=== PATIENT | male | born 1985 | race Two or more races ===

== ENCOUNTER 2019-01-17 13:08 | Emergency (ER) | payer SELFPAY ==
[~2019-01-17] VITALS: Ht 170.2 cm; Wt 74.8 kg
--- NOTE | 2019-01-17 13:10 | NUR ---
BROUGHT IN by ambulance from the street per lapd and rescue patient wants to kill luis a [place] PLACED HIM ON 5150 ON ARRIVAL HE IS AWAKE ALERT ORIENTED.patient denies any suicidal at this time
--- NOTE | 2019-01-17 13:15 | NUR ---
sitter order obtained sitter at [facility] . meds given and iv started by carroll henry
[2019-01-17] MEDS ORDERED: TRAZODONE HCL150 MG ORAL (13:27)
[2019-01-17] MEDS ORDERED: SERTRALINE HCL25 MG ORAL (13:27)
[2019-01-17 13:30] VITALS: BP 128/64
--- NOTE | 2019-01-17 13:30 | NUR ---
continue monitoring sitter at bedside
--- NOTE | 2019-01-17 13:40 | Emergency Room Report ---
History of Present Illness General Chief Complaint: Behavioral Complaint Source: EMS (Melanie Velasquez) Present Illness HPI 33-year-old male presents to the emergency department on 5150 hold for suicidal ideations. Patient is endorsing wanting to commit suicide he states he does not have a plan at this time he denies previous suicide attempts he does report previous psychiatric hospitalizations and states that he was recently hospitalized at [facility]. Patient states he is on a psychiatric medication for which she is not know the name of at this time he states he is being treated for anxiety. Patient reports alcohol use he denies illicit drug use. He denies history of heart or liver conditions denies history of seizures. Denies hallucinations, delusions or manic episodes. Denies pain, chest pain, shortness of breath or abdominal pain/tenderness. (Melanie Velasquez) Allergies: Coded Allergies: No Known Allergies (Unverified , 01/17/19) Patient History Past Medical History: see triage record Past Surgical History: none Pertinent Family History: none Social History: Reports: alcohol use Reviewed Nursing Documentation: PMH: Agreed; PSxH: Agreed (Melanie Velasquez) Nursing Documentation-PMH Past Medical History: No History, Except For History Of Psychiatric Problem: Yes - depression anxiety (Melanie Velasquez) Review of Systems All Other Systems: negative except mentioned in HPI (Melanie Velasquez) Physical Exam Vital Signs Date Time Temp Pulse Resp B/P (MAP) Pulse Ox O2 Delivery O2 Flow Rate FiO2 01/17/19 13:01 98.2 98 18 128/64 (85) 100 Sp02 EP Interpretation: reviewed, normal General Appearance: no apparent distress, alert, GCS 15, non-toxic Head: normocephalic, atraumatic Eyes: bilateral eye normal inspection, bilateral eye PERRL ENT: hearing grossly normal, normal voice Neck: full range of motion Respiratory: chest non-tender, lungs clear, normal breath sounds, speaking full sentences Cardiovascular #1: regular rate, rhythm Gastrointestinal: normal bowel sounds, non tender, soft Musculoskeletal: back normal, gait/station normal, normal range of motion, non- tender, other - bruises to the legs bilaterally Neurologic: alert, oriented x3, responsive, motor strength/tone normal, sensory intact, speech normal, grossly normal Psychiatric: judgement/insight normal Skin: normal color, no rash, warm/dry, well hydrated (Melanie Velasquez) Medical Decision Making PA Attestation Dr. Zamora Is my supervising Physician whom patient management has been discussed with. (Melanie Velasquez) Diagnostic Impression: Primary Impression: Behavioral change Additional Impressions: Alcohol intoxication Qualified Codes: F10.920 - Alcohol use, unspecified with intoxication, uncomplicated Rhabdomyolysis Qualified Codes: M62.82 - Rhabdomyolysis Depression Anxiety ER Course 33-year-old male presents to the emergency department on 5150 hold for suicidal ideations. Patient is endorsing wanting to commit suicide he states he does not have a plan at this time he denies previous suicide attempts he does report previous psychiatric hospitalizations and states that he was recently hospitalized at [facility]. Patient states he is on a psychiatric medication for which she is not know the name of at this time he states he is being treated for anxiety. Patient reports alcohol use he denies illicit drug use. He denies history of heart or liver conditions denies history of seizures. Denies hallucinations, delusions or manic episodes. Denies pain, chest pain, shortness of breath or abdominal pain/tenderness. Pt is hyperactive, and has a very restless affect. Ddx considered but are not limited to OD, SI/HI, psychosis, UTI, intoxication Vital signs: are WNL, pt. is afebrile H&PE are most consistent with behavioral/mental health issue ORDERS: -CBC, CMP: electrolyte imbalance- hypokalemia, hyponatremia. -CK: elevated at 1646 - Serum ETOH: 426 -UA: negative for infection see results attached. -UDS: negative -Salicylates and Acetaminophen - no acute intoxication. ED INTERVENTIONS: -1mg Ativan IV - 2 liters NS -Zofran IV -Pepcid - K-Stefano 40Meq. DISPOSITION: Awaiting repeat labs before pt. can be medically cleared. Pt. on [address] out [address] driscoll- on-coming ED physician Labs Test 01/17/19 13:27 White Blood Count 7.9 K/UL (4.8-10.8) Red Blood Count 4.61 M/UL (4.70-6.10) Hemoglobin 14.3 G/DL (14.2-18.0) Hematocrit 39.7 % (42.0-52.0) Mean Corpuscular Volume 86 FL (80-99) Mean Corpuscular Hemoglobin 31.1 PG (27.0-31.0) Mean Corpuscular Hemoglobin Concent 36.1 G/DL (32.0-36.0) Red Cell Distribution Width 11.6 % (11.6-14.8) Platelet Count 247 K/UL (150-450) Mean Platelet Volume 5.1 FL (6.5-10.1) Neutrophils (%) (Auto) 76.3 % (45.0-75.0) Lymphocytes (%) (Auto) 12.2 % (20.0-45.0) Monocytes (%) (Auto) 9.5 % (1.0-10.0) Eosinophils (%) (Auto) 0.2 % (0.0-3.0) Basophils (%) (Auto) 1.9 % (0.0-2.0) Sodium Level 133 MMOL/L (136-145) Potassium Level 3.4 MMOL/L (3.5-5.1) Chloride Level 95 MMOL/L (98-107) Carbon Dioxide Level 25 MMOL/L (21-32) Anion Gap 13 mmol/L (5-15) Blood Urea Nitrogen 4 mg/dL (7-18) Creatinine 0.8 MG/DL (0.55-1.30) Estimat Glomerular Filtration Rate > 60 mL/min (>60) Glucose Level 133 MG/DL (74-106) Calcium Level 8.3 MG/DL (8.5-10.1) Total Bilirubin 1.0 MG/DL (0.2-1.0) Aspartate Amino Transf (AST/SGOT) 69 U/L (15-37) Alanine Aminotransferase (ALT/SGPT) 32 U/L (12-78) Alkaline Phosphatase 122 U/L (46-116) Total Creatine Kinase 1626 U/L (26-308) Total Protein 7.6 G/DL (6.4-8.2) Albumin 3.9 G/DL (3.4-5.0) Globulin 3.7 g/dL Albumin/Globulin Ratio 1.1 (1.0-2.7) Salicylates Level < 0.2 ug/mL (2.8-20) Urine Opiates Screen Negative (NEGATIVE) Acetaminophen Level < 2 MCG/ML (10-30) Urine Barbiturates Screen Negative (NEGATIVE) Phencyclidine (PCP) Screen Negative (NEGATIVE) Urine Amphetamines Screen Negative (NEGATIVE) Urine Benzodiazepines Screen Negative (NEGATIVE) Urine Cocaine Screen Negative (NEGATIVE) Urine Marijuana (THC) Screen Negative (NEGATIVE) Serum Alcohol 421 mg/dL (Melanie Velasquez) ER Course Patient was seen by Dr. Driscoll. Patient was signed out to me for final disposition. I have also evaluated patient. Patient apparently was intoxicated last night and complained to the police that he wanted to hurt himself. Patient now is clinically sober and has rescinded his complaints. He is not suicidal or homicidal. He is a little anxious and has a history of alcoholism. He is requesting to be discharged. However because he is on a 5150 hold psychiatric he was consulted. Dr. Macdonald saw the patient. [place] that patient was medically and psychiatrically cleared. Patient's 5150 was lifted. Patient's laboratory work-up was appropriate except for elevated CK. This was repeated throughout the night and appeared to be improving. Patient also receive a total of 5 L fluid bolus since he has been here and appears to be doing well. He is able to eat. Patient will receive social work evaluation prior to discharge. Will recommend providing counseling as well as outpatient follow-up with addiction centers or shelters. Advised to follow-up with primary care physician or free clinic return to ER for any worsening symptoms and as needed. Advised return emergency room if he feels suicidal or has any suicidal thoughts. Labs Test 01/17/19 13:27 01/17/19 20:36 01/18/19 07:10 White Blood Count 7.9 K/UL (4.8-10.8) Red Blood Count 4.61 M/UL (4.70-6.10) Hemoglobin 14.3 G/DL (14.2-18.0) Hematocrit 39.7 % (42.0-52.0) Mean Corpuscular Volume 86 FL (80-99) Mean Corpuscular Hemoglobin 31.1 PG (27.0-31.0) Mean Corpuscular Hemoglobin Concent 36.1 G/DL (32.0-36.0) Red Cell Distribution Width 11.6 % (11.6-14.8) Platelet Count 247 K/UL (150-450) Mean Platelet Volume 5.1 FL (6.5-10.1) Neutrophils (%) (Auto) 76.3 % (45.0-75.0) Lymphocytes (%) (Auto) 12.2 % (20.0-45.0) Monocytes (%) (Auto) 9.5 % (1.0-10.0) Eosinophils (%) (Auto) 0.2 % (0.0-3.0) Basophils (%) (Auto) 1.9 % (0.0-2.0) Sodium Level 133 MMOL/L (136-145) Potassium Level 3.4 MMOL/L (3.5-5.1) Chloride Level 95 MMOL/L (98-107) Carbon Dioxide Level 25 MMOL/L (21-32) Anion Gap 13 mmol/L (5-15) Blood Urea Nitrogen 4 mg/dL (7-18) Creatinine 0.8 MG/DL (0.55-1.30) Estimat Glomerular Filtration Rate > 60 mL/min (>60) Glucose Level 133 MG/DL (74-106) Calcium Level 8.3 MG/DL (8.5-10.1) Total Bilirubin 1.0 MG/DL (0.2-1.0) Aspartate Amino Transf (AST/SGOT) 69 U/L (15-37) Alanine Aminotransferase (ALT/SGPT) 32 U/L (12-78) Alkaline Phosphatase 122 U/L (46-116) Total Creatine Kinase 1626 U/L (26-308) 1420 U/L (26-308) 1166 U/L (26-308) Total Protein 7.6 G/DL (6.4-8.2) Albumin 3.9 G/DL (3.4-5.0) Globulin 3.7 g/dL Albumin/Globulin Ratio 1.1 (1.0-2.7) Salicylates Level < 0.2 ug/mL (2.8-20) Urine Opiates Screen Negative (NEGATIVE) Acetaminophen Level < 2 MCG/ML (10-30) Urine Barbiturates Screen Negative (NEGATIVE) Phencyclidine (PCP) Screen Negative (NEGATIVE) Urine Amphetamines Screen Negative (NEGATIVE) Urine Benzodiazepines Screen Negative (NEGATIVE) Urine Cocaine Screen Negative (NEGATIVE) Urine Marijuana (THC) Screen Negative (NEGATIVE) Serum Alcohol 421 mg/dL 207 mg/dL (Ervin Novoa MD) Other X-Ray Diagnostic Results Other X-Ray Diagnostic Results : X-Ray ordered: Left Ankle # of Views/Limited Vs Complete: 3 View Indication: Pain EP Interpretation: Yes PA Xray: Interpretation reviewed, by supervising MD, and agrees with findings. Interpretation: no dislocation, no soft tissue swelling, no fractures Impression: No acute disease Electronically Signed by: Melanie Velasquez PA-C (Melanie Velasquez) Last Vital Signs Date Time Temp Pulse Resp B/P (MAP) Pulse Ox O2 Delivery O2 Flow Rate FiO2 01/17/19 13:01 98.2 98 18 128/64 (85) 100 (Melanie Velasquez) Status: improved (Ervin Novoa MD) Disposition: HOME, SELF-CARE Condition: Stable Signed Out To: Dr. Driscoll (Melanie Velasquez) Melanie Velasquez Jan 17, 2019 13:40 Ervin Novoa MD Jan 18, 2019 10:46
--- NOTE | 2019-01-17 13:42 | NUR ---
ED Nurse Note: pt belongings on locker 3
--- NOTE | 2019-01-17 13:45 | NUR ---
sitter at bedside
[2019-01-17] MEDS ORDERED: LORazepam Inj 2mg/ml 1ml IV ONE (14:00)
--- NOTE | 2019-01-17 14:00 | NUR ---
sitter at bedside
[2019-01-17 14:08] LABS: BASOPHILS % (AUTO) 1.9 % (0.0-2.0); EOSINOPHILS % (AUTO) 0.2 % (0.0-3.0); HEMATOCRIT 39.7 % (42.0-52.0); HEMOGLOBIN 14.3 G/DL (14.2-18.0); LYMPHOCYTES % (AUTO) 12.2 % (20.0-45.0); MEAN CORPUSCULAR VOLUME 86 FL (80-99); MONOCYTES % (AUTO) 9.5 % (1.0-10.0); NEUTROPHILS % (AUTO) 76.3 % (45.0-75.0); PLATELET COUNT 247 K/UL (150-450); RED BLOOD COUNT 4.61 M/UL (4.70-6.10); RED CELL DISTRIBUTION WIDTH 11.6 % (11.6-14.8); WHITE BLOOD COUNT 7.9 K/UL (4.8-10.8)
--- NOTE | 2019-01-17 14:15 | NUR ---
sitter at bedside
[2019-01-17 14:25] LABS: ANION GAP 13 mmol/L (5-15); BLOOD UREA NITROGEN 4 mg/dL (7-18); CALCIUM 8.3 MG/DL (8.5-10.1); CARBON DIOXIDE 25 MMOL/L (21-32); CHLORIDE 95 MMOL/L (98-107); CREATININE 0.8 MG/DL (0.55-1.30); POTASSIUM 3.4 MMOL/L (3.5-5.1); SODIUM 133 MMOL/L (136-145)
--- NOTE | 2019-01-17 14:30 | NUR ---
sitter at bedside
[2019-01-17 14:38] LABS: ALANINE AMINOTRANSFERASE 32 U/L (12-78); ALBUMIN 3.9 G/DL (3.4-5.0); ALBUMIN/GLOBULIN RATIO 1.1 (1.0-2.7); ALKALINE PHOSPHATASE 122 U/L (46-116); ASPARTATE AMINO TRANSFERASE 69 U/L (15-37); CREATINE KINASE 1626 U/L (26-308)
--- NOTE | 2019-01-17 15:00 | NUR ---
patient is awake alert oriented sitter at bedside continue monitor
--- NOTE | 2019-01-17 15:30 | NUR ---
sitter at bedside patient is sleeping
--- NOTE | 2019-01-17 16:00 | NUR ---
patient is sleeping iv infusing well. sitter at bedside
--- NOTE | 2019-01-17 16:15 | NUR ---
sitter at bedside
--- NOTE | 2019-01-17 16:42 | NUR ---
ED Nurse Note: pt is nauseadted and asked for a bag and provided, pt vomited, diya stone made aware and order iv zofran and given and pt able to tolerate. will continue to monitor
[2019-01-17 17:30] VITALS: BP 124/60
--- NOTE | 2019-01-17 19:20 | NUR ---
HAND-OFF: Report given to Tamy henry. pt is asleep and calm at the moment.
--- NOTE | 2019-01-17 19:40 | NUR ---
ED Nurse Note: Patient resting comfortably, able to ambulate to restroom no s/s of acute distress and reports no intention to harm himself.
--- NOTE | 2019-01-17 19:50 | NUR ---
ED Nurse Note: Patient accompanied by sitter, see sitter log.
--- NOTE | 2019-01-17 20:40 | NUR ---
ED Nurse Note: patient ambulating frequently to the restroom, no s/s of acute distress and no complaints at this time.
[2019-01-17 21:29] LABS: CREATINE KINASE 1420 U/L (26-308)
--- NOTE | 2019-01-17 21:41 | NUR ---
ED Nurse Note: Patient resting comfortably and able to void.
--- NOTE | 2019-01-17 22:46 | NUR ---
ED Nurse Note: Patient resting comfortably no s/s of acute distress.
--- NOTE | 2019-01-17 23:50 | NUR ---
ED Nurse Note: Patient is resting comfortably.
--- NOTE | 2019-01-18 01:33 | NUR ---
ED Nurse Note: Patient sleeping comfortably no s/s of acute distress.
--- NOTE | 2019-01-18 07:10 | NUR ---
ED Nurse Note: SITTER AT THE BEDSIDE. BREAKFAST TRAY GIVEN
--- NOTE | 2019-01-18 08:00 | NUR ---
ED Nurse Note:blood sent to labs per md order, pt. had breakfast,resting no signs of distress noted ,sitter is at bed side ,updated VS
[2019-01-18 08:19] VITALS: BP 135/85
[2019-01-18 08:21] LABS: CREATINE KINASE 1166 U/L (26-308)
[2019-01-18] MEDS ORDERED: LORazepam Inj 2mg/ml 1ml IV ONE (08:45)
--- NOTE | 2019-01-18 08:49 | NUR ---
ED Nurse Note: SITTER AT THE BEDSIDE. PT. HAS NO S/S OF ACUTE RESPIRATORY DISTRESS NOTED
--- NOTE | 2019-01-18 09:00 | NUR ---
ED Nurse Note:sitter is at bedside
--- NOTE | 2019-01-18 10:15 | NUR ---
ED Nurse Note: DR. NAQVI AT THE BEDSIDE
--- NOTE | 2019-01-18 10:25 | NUR ---
ED Nurse Note:dr. Macodnald came to evaluate pt. ,she removed the 51/50 hold and pt. will be seen by SW first and then discharged
--- NOTE | 2019-01-18 10:29 | NUR ---
ED Nurse Note: DR. NAQVI LIFTED THE HOLD
--- NOTE | 2019-01-18 10:30 | NUR ---
ED Nurse Note: DR. BAJWA CALLED SW BUT DID NOT AIRWAYS OPERATIONS SPECIALIST. DR. BAJWA LEFT A MESSAGE
--- NOTE | 2019-01-18 10:47 | NUR ---
ED Nurse Note: CALLED SW. SPOKE WITH JOVAN LAMAS. SHE WILL COME DOWN AND SEE THE PATIENT
--- NOTE | 2019-01-18 11:30 | Diagnostic Imaging Report ---
Indication: left ankle pain Comparison: None Findings: 3 views of the left ankle obtained. Generalized soft tissue swelling is present within the visualized part of the leg and ankle. No acute fracture, malalignment, periostitis, or osteochondral defects are identified. Impression: No acute findings. Soft tissue swelling
--- NOTE | 2019-01-18 11:37 | NUR ---
ED Nurse Note: Sports Cartoonist Barb confirmed that pt can go back to his facility @ [address]
[2019-01-18 11:38] VITALS: BP 129/74
[2019-01-18 12:01] VITALS: BP 129/74
--- NOTE | 2019-01-18 12:11 | NUR ---
ER DISCHARGE NOTE: Patient is cleared to be discharged per ERMD, pt is aox4, on room air, with stable vital signs. pt was given dc and prescription instructions, pt was able to verbalize understanding, pt is able to ambulate with steady gait. pt took all belongings.pt was provided with taxi voucher back to his place
--- NOTE | 2019-01-18 14:09 | NUR ---
Social Service Note JOVAN met with patient and addressed community resources. Patient states he is residing at [facility] a transitional housing program at [address]. Patient states he would like to return to this location upon discharge. Patient cleared by psychiatrist Dr. Macdonald. Patient states he doesn't feel he is dependent of alcohol however is aware when he drinks excessively he feels depressed. Patient is worried that he may lose his housing because of this actions. Patient is receptive to resources. Currently patient's insurance has lapse and he is non-funded. JOVAN spoke with director of admitting who will have a ambulatory service representative screen patient for [facility]. JOVAN discussed mental health follow up and the information on [facility] substance abuse hotline. JOVAN contacted [facility] [phone] and spoke with Stephanie. Stephanie confirmed patient is able to return to program. JOVAN informed primary nurse. Patient can return via taxi.
--- NOTE | 2019-01-19 04:30 | Consultation ---
DATE OF CONSULTATION: 01/18/2019 CONSULTING PHYSICIAN: Kenroy Macdonald M.D. REFERRING PHYSICIAN: Ervin Novoa M.D. HISTORY OF PRESENT ILLNESS: The patient is a 33-year-old male with a history of alcohol dependence since age 17, who is admitted to the hospital due to suicidal ideation. The patient was placed on a 5150 for danger to self. At that time, the patient was intoxicated when they brought into the emergency room. He arrives here yesterday afternoon. During the evaluation today, he was anxious and withdrawing from alcohol. When he was , he was given 1 mg of Ativan . The patient stated that he is feeling suicidal when intoxicated, however, he is not feeling suicidal. He was motivated to stop drinking. I evaluated the patient with his nurse in the room. The patient denied any suicidal or homicidal ideation. He stated that he feels more anxiety and he has alcohol dependence. The patient also has been depressive, having low energy. The patient is unemployed and he is on disability. He does not endorse any psychotic or manic symptoms. PAST PSYCHIATRIC HISTORY: He has a history of psychiatric disorder in the past . About a few weeks ago, he was with similar situation. He took himself to [facility]. PAST MEDICAL HISTORY: He has kidney and liver abnormalities. ALLERGIES: No known drug allergies. SUBSTANCE ABUSE HISTORY: Significant for marijuana and alcohol. MENTAL STATUS EXAMINATION: The patient is alert and oriented x4. Pleasant and cooperative. Mood is anxious and irritable. Affect is constricted with congruent mood. Thought process, linear and goal-oriented. Thought content, no suicidal or homicidal ideations. No auditory or visual hallucinations. No delusions. Cognition is intact. Insight and judgment is fair. ASSESSMENT: [place] I Alcohol dependence. Alcohol withdrawal. Major depressive disorder. [place] II Deferred. [place] III Liver and kidney abnormalities. [place] IV Low. [place] V 50 PLAN: 1. The patient is not an imminent danger to self or others. 2. The patient needs treatment for alcohol dependence. I will give him referral to an alcohol treatment center. 3. The patient also needs to follow up with his psychiatrist, as he was placed on Zoloft. 4. The patient was educated about compliance with medication alcohol withdrawal. 5. The patient does not meet the criteria for 5150 nor psychiatric inpatient level. 6. The patient will be discharged to follow up with a psychiatrist. Discussed with Dr. Novoa. Kenroy Macdonald M.D. DR: FACUNDO JOB#: [id number] CC:
== END 2019-01-18 12:11 | disposition home or self-care (01) ==
LOC: EDBD 13:08 → EMR 13:15
DX: R46.89 Other symptoms and signs involving appearance and behavior (principal); F10.920 Alcohol use, unspecified with intoxication, uncomplicated; M62.82 Rhabdomyolysis; F32.9 Major depressive disorder, single episode, unspecified; F41.9 Anxiety disorder, unspecified
CPT/HCPCS: 36415; 73610; 80053; 80307; 82550; 85025; 96361; 96374; 96375; 96376; 99285; G0480; J2405; S0028; 80329; J8499

== ENCOUNTER 2019-11-02 16:52 | Emergency (ER) | payer MEDICAID ==
[2019-11-02] VITALS (14 sets, daily range): BP systolic 122–153; BP diastolic 68–89
[~2019-11-02] VITALS: Ht 170.2 cm; Wt 77.1 kg
[~2019-11-02 16:52] MED LIST: SERTRALINE HCL25 MG ORAL; TRAZODONE HCL150 MG ORAL
--- NOTE | 2019-11-02 16:52 | NUR ---
ED Nurse Note: Pt brought in by ambulance d/t [employer] being called on him for being intoxicated at the train station. Pt does not answer questions, nonverbal. A+Ox0. Respirations even and unlabored on room air. Vitals stable as documented.
[2019-11-02] MEDS ORDERED: LORazepam Inj 2mg/ml 1ml ONE (16:58)
[2019-11-02] MEDS ORDERED: LORazepam Inj 2mg/ml 1ml IM ONE (17:00)
--- NOTE | 2019-11-02 17:04 | NUR ---
ED Nurse Note: Pt keeps trying to get out of the bed, taking his clothes off, and very unsteady. ED MD made aware and ativan ordered. Bilateral restraints initiated temporaily until pt is no longer a danger to himself. Addendum: 11/02/19 at 1705 by BDUTTON per ED , restraints initiated and will be removed within the hour.
--- NOTE | 2019-11-02 17:33 | NUR ---
ED Nurse Note: Pt continues to try to get out of bed even with restraints on. Pt does not follow commands.
--- NOTE | 2019-11-02 17:50 | Emergency Room Report ---
History of Present Illness General Chief Complaint: Alcohol Intoxication Source: EMS (Dandre Slade MD) Present Illness HPI 35-year-old male presents ED unidentified male presents ED for alcohol intoxication[place] [employer]. Admits to alcohol intoxication. Will not provide his name. No signs of distress. No signs of injury. No nausea or vomiting. No fevers or chills. No other aggravating relieving factors. No other associated symptoms (Dandre Slade MD) Allergies: Coded Allergies: No Known Allergies (Unverified , 01/17/19) UNABLE TO ASSESS (Unverified , 11/03/19) COVID-19 Screening Contact w/high risk pt: No Recent Travel to affected area: No Experienced COVID-19 symptoms?: No (Dandre Slade MD) Patient History Past Medical History: none Past Surgical History: none Pertinent Family History: none Social History: Reports: alcohol use; Denies: smoking, drug use Immunizations: UTD Reviewed Nursing Documentation: PMH: Agreed; PSxH: Agreed (Dandre Slade MD) Review of Systems All Other Systems: limited (Dandre Slade MD) Physical Exam Vital Signs Date Time Temp Pulse Resp B/P (MAP) Pulse Ox O2 Delivery O2 Flow Rate FiO2 11/02/19 16:47 98.8 115 20 126/84 (98) 95 Sp02 EP Interpretation: reviewed, normal General Appearance: no apparent distress, non-toxic, other - intoxicated Head: normocephalic, atraumatic Eyes: bilateral eye normal inspection, bilateral eye PERRL ENT: hearing grossly normal, normal pharynx, no angioedema, normal voice Neck: full range of motion, supple/symm/no masses Respiratory: chest non-tender, lungs clear, normal breath sounds, speaking full sentences Cardiovascular #1: regular rate, rhythm, no edema Cardiovascular #2: 2+ carotid (R), 2+ carotid (L), 2+ radial (R), 2+ radial (L) , 2+ dorsalis pedis (R), 2+ dorsalis pedis (L) Gastrointestinal: normal bowel sounds, non tender, soft, non-distended, no guarding, no rebound Rectal: deferred Genitourinary: normal inspection, no CVA tenderness Musculoskeletal: back normal, normal range of motion, gait/station normal, non- tender Neurologic: oriented x3, sensory intact, other - intoxicated Psychiatric: other - intoxicate Reflexes: 3+ bicep (R), 3+ bicep (L), 3+ tricep (R), 3+ tricep (L), 3+ knee (R) , 3+ knee (L) Skin: no rash Lymphatic: no adenopathy (Dandre Slade MD) Medical Decision Making Homeless Attestation I, The treating physician Dr. Zamora, have assessed and agree that patient is medically stable for discharge to an outpatient disposition. (Dano Zamora MD) Diagnostic Impression: Primary Impression: Acute alcoholic intoxication Qualified Codes: F10.929 - Alcohol use, unspecified with intoxication, unspecified ER Course Please see above note. 2230 -patient awake ambulatory without ataxia. He states he knows he has problems with alcohol. He has been to 12-step programs in the past. He denies seizures ulcers GI bleed. Patient is not suicidal at this time. Patient stable for outpatient observation and treatment. (Dano Zamora MD) Last Vital Signs Date Time Temp Pulse Resp B/P (MAP) Pulse Ox O2 Delivery O2 Flow Rate FiO2 11/02/19 17:08 115 20 11/02/19 17:08 98.8 126/84 95 Status: improved (Dandre Slade MD) Status: improved (Dano Zamora MD) Disposition: HOME, SELF-CARE Condition: Stable Referrals: NOT CHOSEN IPA/,REFERRING (PCP) Dandre Slade MD Nov 02, 2019 17:50 Dano Zamora MD Nov 02, 2019 22:31
--- NOTE | 2019-11-02 19:05 | NUR ---
ED Nurse Note: reassessed need for restraints and pt continues to try to get out of bed and almost fall. Pulses present with no skin breakdown. ED MD aware.
--- NOTE | 2019-11-02 19:20 | NUR ---
ED Nurse Note: Report given to JANE Bishop. Pt in stable condition; plan of care endorsed.
--- NOTE | 2019-11-02 19:30 | NUR ---
ED Nurse Note: Recieved report to resume care, pt in bed very restless and agitated, all clothing removed and soiled, pt attempting to speak but speech is very slurred and non-comprehensible, was able to collect pt name and date, pt no longer glenis zuleta, pt remains in restraints to prevent self harm, pt was cleaned and dry gown on, linen changed and pt position changed, will continue to closely montior and release restraints when appropriate and closely monitor.
--- NOTE | 2019-11-02 20:00 | NUR ---
ED Nurse Note: Pt released from restraints, remains slow and appears under the influence but is able to speak clearly, is floolowing commands, ate sandwich and juice and tolerated ell, denies being homeless, pt is more awake and calm and cooperative, pt given clean, dry clothing, dressed himself, ambulates with slight un-steady gait, will continue to monitor and ambulate and discharge pt when safe, pt is anxious to go home, aware and re-assessed pt also. no need for restraints at this time.
--- NOTE | 2019-11-02 21:00 | NUR ---
ED Nurse Note: Pt continues to rest quietly in room, ambulating to bathroom and in department, tolerating well, v/s stable, denies pain, no sob or labored breathing, ambulating with steady gait, will continue to closely monitor and allow to sober more before discharge, pt is completely awake and alert and oriented to name, place and event.
== END 2019-11-02 22:40 | disposition home or self-care (01) ==
LOC: EDBD 16:52 → MERGE 17:09 → EMR 17:09
DX: F10.129 Alcohol abuse with intoxication, unspecified (principal)
CPT/HCPCS: 96372; Z7502; 99284